=== PATIENT | female | born 1940 | race Caucasian/White ===

== ENCOUNTER 2020-05-10 07:30 | Inpatient (IN) ==
[~2020-05-10 07:30] MED LIST: Buffered Lidocaine 1% SYRIN 1 ml INTRADERM ONE; Lactated Ringers 1000 ml BAG 1,000 ML IV SCH
[2020-05-10] MEDS ORDERED: ceFAZolin 2 GM PREMIX 2 GM/50 ML BAG ONE (08:02)
[2020-05-10] MEDS ORDERED: Buffered Lidocaine 1% SYRIN 1 ml INTRADERM ONE (08:02)
[2020-05-10] MEDS ORDERED: Bupivacaine 0.5% SDV PF 30ML VIAL ONE (08:45)
[2020-05-10] MEDS ORDERED: Rocuronium 50 mg VIAL 10 mg/ml 5 ml VIAL (50 mg) ONE ×2 (08:59→10:22)
[2020-05-10] MEDS ORDERED: fentaNYL 250 mcg/5 ml 50 MCG/ML 5 ml VIAL (250 MCG) ONE (08:59)
[2020-05-10] MEDS ORDERED: Propofol 10 MG/ML 20 ML BTL ONE (09:01)
[2020-05-10] MEDS ORDERED: Lidocaine 2% PF 5 ML VIAL ONE (09:01)
[2020-05-10] MEDS ORDERED: Phenylephrine 40 mcg/mL 10mL (400mcg) SYRINGE ONE (09:01)
[2020-05-10] MEDS ORDERED: HYDROmorphone 1 MG/1 ML SYRINGE ONE (09:55)
[2020-05-10] MEDS ORDERED: HYDROmorphone 1 MG/1 ML SYRINGE IV PRN (09:59)
[2020-05-10] MEDS ORDERED: Naloxone 0.4 mg VIAL 0.4 mg/ml 1 ml VIAL IV PRN (09:59)
[2020-05-10] MEDS ORDERED: fentaNYL 100 mcg/2 ml 50 MCG/ML VIAL IV PRN (09:59)
[2020-05-10] MEDS ORDERED: oxyCODONE/Acetamin 5/325 mg TAB PO PRN (12:32)
[2020-05-10] MEDS ORDERED: Ondansetron 4 mg VIAL 2 MG/ML 2 ml VIAL IV PRN (12:32)
[2020-05-10] MEDS ORDERED: fentaNYL 100 mcg/2 ml 50 MCG/ML VIAL ONE (14:03)
[2020-05-10] MEDS ORDERED: HYDROmorphone 0.5 MG/0.5 ML SYRINGE IV SLOW PU PRN (14:22)
[2020-05-10] MEDS ORDERED: NS 0.9% 1000 ml BAG 1,000 ML IV SCH (15:15)
[2020-05-10] MEDS ORDERED: Heparin 5000 UNITS/ML 1 mL VIAL SUBCUT SCH (22:00)
[2020-05-11] MEDS: Heparin 5000 UNITS/ML 1 mL VIAL SUBCUT SCH ×2 (00:40→09:02)
[2020-05-11 06:48] LABS: ABS Lymphocytes 1.9 10^3/ul (1.0-4.8); ABS Monocytes 1.5 10^3/ul (0-0.8); ABS Neutrophils 7.4 10^3/ul (1.5-7.7); Eosinophil % 0.1 %; Hematocrit 25 % (35-47); Hemoglobin 8.1 g/dL (12.0-16.0); Lymphocyte % 17.9 %; Mean Corpuscular HGB Conc 33 g/dL (31-36); Mean Corpuscular Hemoglobin 27 pg (27-31); Mean Corpuscular Volume 80 fL (80-97); Mean Platelet Volume 9.2 fL (7.4-10.4); Platelet Count 298 10^3/uL (150-450); Red Blood Count 3.07 10^6 /uL (3.70-4.87); Red Cell Distribution Width 17 % (10-15); White Blood Count 10.9 10^3/uL (3.5-10.8)
[2020-05-11 07:07] LABS: BUN/Creatinine Ratio 22.2 (8-20); Calcium 7.4 mg/dL (8.6-10.3); EGFR African American 72.7 (>60); EGFR Non-African American 60.1 (>60); Potassium 4.3 mmol/L (3.5-5.0)
[2020-05-11 11:31] VITALS: BP 142/58
== END 2020-05-11 12:15 | disposition home or self-care (01) | DRG 328 ==
LOC: OR 07:30 → SSU 14:11
PROVIDERS: ADMIT Surgery; ATTEND Surgery

== ENCOUNTER 2020-12-25 21:45 | Observation (INO) ==
[2020-12-25] MEDS ORDERED: hydrALAZINE 20 mg/ml 1 ML Vial IV IV SLOW PU ONE (22:16)
[2020-12-25 23:09] LABS: ABS Basophils 0.1 10^3/ul (0-0.2); ABS Eosinophils 0.2 10^3/ul (0-0.6); ABS Lymphocytes 2.1 10^3/ul (1.0-4.8); ABS Monocytes 0.7 10^3/ul (0-0.8); ABS Neutrophils 3.3 10^3/ul (1.5-7.7); Eosinophil % 3.7 %; Hematocrit 34 % (35-47); Hemoglobin 11.3 g/dL (12.0-16.0); Lymphocyte % 33.5 %; Mean Corpuscular HGB Conc 33 g/dL (31-36); Mean Corpuscular Hemoglobin 30 pg (27-31); Mean Corpuscular Volume 91 fL (80-97); Platelet Count 259 10^3/uL (150-450); Red Blood Count 3.76 10^6 /uL (3.70-4.87); Red Cell Distribution Width 15 % (10-15); White Blood Count 6.3 10^3/uL (3.5-10.8)
[2020-12-25 23:31] LABS: ALT 13 U/L (7-52); AST 16 U/L (13-39); Albumin 4.3 g/dL (3.2-5.2); Albumin/Globulin Ratio 1.6 (1-3); Alkaline Phosphatase 57 U/L (34-104); Anion Gap 8 mmol/L (2-11); BUN/Creatinine Ratio 24.5 (8-20); Blood Urea Nitrogen 24 mg/dL (6-24); CO2 Carbon Dioxide 24 mmol/L (22-32); Calcium 9.5 mg/dL (8.6-10.3); Chloride 100 mmol/L (101-111); EGFR African American 65.7 (>60); EGFR Non-African American 54.3 (>60); Globulin 2.7 g/dL (2-4); Glucose 100 mg/dL (70-100); Potassium 4.1 mmol/L (3.5-5.0); Sodium 132 mmol/L (135-145)
[2020-12-25 23:57] LABS: Troponin I 0.26 ng/mL (<0.03)
[2020-12-26] MEDS ORDERED: Ondansetron 4 mg VIAL 2 MG/ML 2 ml VIAL IV PRN (01:37)
[2020-12-26 03:37] LABS: Magnesium 1.7 mg/dL (1.9-2.7)
[2020-12-26] MEDS ORDERED: MELOXICAM 15 MG PO PRN (03:40)
[2020-12-26] MEDS ORDERED: oxyCODONE/Acetamin 5/325 mg TAB PO PRN (03:43)
[2020-12-26 03:45] LABS: Troponin I 1.97 ng/mL (<0.03)
[2020-12-26] MEDS: Enoxaparin 80 MG/0.8 ML SYR SUBCUT SCH ×2 (04:28→21:11)
[2020-12-26 04:38] LABS: Free T4 1.22 ng/dL (0.61-1.12)
[2020-12-26] MEDS ORDERED: Magnesium Sulfate 2 gm BAG 2 GM/50 ML BAG IVPB ONE (05:06)
[2020-12-26 05:51] LABS: Urine Appearance Clear; Urine Bilirubin Negative (Negative); Urine Blood Negative (Negative); Urine Color Straw; Urine Glucose Negative (Negative); Urine Ketones Negative (Negative); Urine Nitrite Negative (Negative); Urine Protein Negative (Negative); Urine Specific Gravity 1.008 (1.010-1.030); Urine Urobilinogen Negative (Negative)
[2020-12-26 06:04] LABS: Urine White Blood Cell 1+(6-10/hpf) (Absent)
[2020-12-26 06:05] LABS: Urine Bacteria Absent (Absent); Urine Red Blood Cell Absent (Absent); Urine Squamous Epithelial Cell Present (Absent)
[2020-12-26 06:29] LABS: ABS Basophils 0.1 10^3/ul (0-0.2); ABS Eosinophils 0.2 10^3/ul (0-0.6); ABS Lymphocytes 2.2 10^3/ul (1.0-4.8); ABS Monocytes 0.8 10^3/ul (0-0.8); ABS Neutrophils 5.2 10^3/ul (1.5-7.7); Hematocrit 34 % (35-47); Hemoglobin 11.2 g/dL (12.0-16.0); Lymphocyte % 26.3 %; Mean Corpuscular HGB Conc 33 g/dL (31-36); Mean Corpuscular Hemoglobin 30 pg (27-31); Mean Corpuscular Volume 90 fL (80-97); Mean Platelet Volume 8.6 fL (7.4-10.4); Platelet Count 266 10^3/uL (150-450); Red Blood Count 3.74 10^6 /uL (3.70-4.87); Red Cell Distribution Width 14 % (10-15); White Blood Count 8.5 10^3/uL (3.5-10.8)
[2020-12-26 06:47] LABS: Anion Gap 8 mmol/L (2-11); BUN/Creatinine Ratio 24.7 (8-20); Blood Urea Nitrogen 21 mg/dL (6-24); CO2 Carbon Dioxide 23 mmol/L (22-32); Calcium 9.3 mg/dL (8.6-10.3); Chloride 101 mmol/L (101-111); Cholesterol 168 mg/dL; EGFR African American 77.5 (>60); Glucose 105 mg/dL (70-100); HDL Cholesterol 76.5 mg/dL; LDL Cholesterol 76 mg/dL; Potassium 4.1 mmol/L (3.5-5.0); Sodium 132 mmol/L (135-145); Triglycerides 80 mg/dL
[2020-12-26 06:52] LABS: Troponin I 2.16 ng/mL (<0.03)
[2020-12-26] MEDS ORDERED: CMCS:Meloxicam 7.5 mg TAB (NF) PO PRN (07:38)
[2020-12-26] MEDS: Polyethylene Glycol 3350 17 GM PACKET PO SCH (08:06)
[2020-12-26] MEDS: DULoxetine DR 60 mg CAP PO SCH (08:09)
[2020-12-26] MEDS ORDERED: Enoxaparin 40 MG/0.4 ML SYR SUBCUT SCH (09:00)
[2020-12-26 11:21] LABS: Troponin I 2.31 ng/mL (<0.03)
[2020-12-26 14:38] LABS: Troponin I 1.86 ng/mL (<0.03)
[2020-12-26] MEDS: Senna TAB 8.6 mg TAB PO SCH (21:10)
[2020-12-27] MEDS ORDERED: Regadenoson 0.4 MG/5 ML SYRINGE ONE (11:02)
[2020-12-27] MEDS: Enoxaparin 80 MG/0.8 ML SYR SUBCUT SCH ×2 (14:44→14:54)
[2020-12-27] MEDS: Polyethylene Glycol 3350 17 GM PACKET PO SCH (14:54)
[2020-12-27] MEDS: DULoxetine DR 60 mg CAP PO SCH (15:00)
[2020-12-27] MEDS ORDERED: diPHENhydraMINE 25 mg TAB PO PRN (15:02)
[2020-12-27] MEDS ORDERED: Midazolam 5 mg/5 ml VIAL 1 mg/ml 5 ml VIAL (5 mg) ONE (15:04)
[2020-12-27] MEDS ORDERED: Heparin 1,000 UNIT/ML 10 ml (10,000 UNITS) CATHLAB/DIALYSIS ONE (15:04)
[2020-12-27] MEDS ORDERED: fentaNYL 100 mcg/2 ml 50 MCG/ML VIAL ONE (15:04)
[2020-12-27] MEDS ORDERED: VERAPAMIL 2.5 MG/ML 2 ML VIAL ** 5 mg/2 ml ONE (15:04)
[2020-12-27] MEDS ORDERED: Iohexol 350 (CONTRAST) 200 ML MDV IV ONE ×2 (15:05→16:03)
[2020-12-27] MEDS ORDERED: nitroGLYCERIN DRIP 25,000 MCG/250 ML BTL ONE (15:05)
[2020-12-27] MEDS ORDERED: Lidocaine 1% VIAL 10 MG/ML VIAL ONE (15:05)
[2020-12-27] MEDS ORDERED: Heparin 2 UNITS/ML 1000 mls 2,000 ML IV ONE (15:05)
[2020-12-27] MEDS ORDERED: NS 0.9% 1000 ml BAG 1,000 ML IV SCH (15:15)
[2020-12-27] MEDS: Senna TAB 8.6 mg TAB PO SCH (20:25)
[2020-12-28 06:32] LABS: BUN/Creatinine Ratio 21.8 (8-20); Calcium 8.5 mg/dL (8.6-10.3); EGFR African American 85.6 (>60); EGFR Non-African American 70.7 (>60); Potassium 3.8 mmol/L (3.5-5.0)
[2020-12-28] MEDS: DULoxetine DR 60 mg CAP PO SCH (08:21)
[2020-12-28] MEDS: Polyethylene Glycol 3350 17 GM PACKET PO SCH (08:23)
[2020-12-28 10:50] VITALS: BP 114/58
== END 2020-12-28 12:40 | disposition home or self-care (01) ==
LOC: ED 21:45 → MEDTELE 21:45
PROVIDERS: ADMIT Internal Medicine; ATTEND Internal Medicine